=== PATIENT | male | born 1985 | race African-American/Black ===

== ENCOUNTER 2023-10-01 23:55 | Inpatient (IN) | payer SELFPAY ==
--- NOTE | ~2023-10-01 | CT_ITS ---
EXAMINATION: CT HEAD WITHOUT CONTRAST CLINICAL INFORMATION: Headache, hypertension COMPARISON: None available. TECHNIQUE: Contiguous axial imaging was performed from the skull base to vertex without intravenous administration of contrast. This CT examination was performed using dose optimization techniques as appropriate, variously including the following: *Automated exposure control *Adjustment of mA and/or kV according to patient size (this includes techniques or standardized protocols for targeted exams where dose is matched to indication/reason for exam; i.e. extremities or head) *Use of iterative reconstruction technique DLP: 649 mGy-cm FINDINGS: There are no acute intra-axial, extra-axial bleed, masses or midline shift. There is no acute infarction in evolution. There is no edema. The lateral ventricles are symmetrical in size and configuration without enlargement. There is no abnormality seen in the posterior fossa. Bone windows reveal no calvarial abnormality. There is no scalp soft tissue abnormality. The paranasal sinuses and mastoid air cells are well-aerated. CT/CT head/brain wo IV con IMPRESSION: No acute intracranial process seen.
--- NOTE | ~2023-10-01 | US_ITS ---
EXAMINATION: US RETROPERITONEAL LIMITED (RENAL ONLY) CLINICAL INFORMATION: Uncontrolled hypertension, proteinuria.. COMPARISON: None available. TECHNIQUE: Routine grayscale imaging and Doppler imaging of both kidneys was performed. FINDINGS: RIGHT KIDNEY: 9.1 x 4.5 x 3.5 cm (SAG x AP x TRV). The kidney is normal in size, contour, and echogenicity. Renal cortical thickness is normal. No calculi or focal parenchymal lesions. No hydronephrosis. LEFT KIDNEY: 9.7 x 4.5 x 3.8 cm (SAG x AP x TRV). The kidney is normal in size, contour, and echogenicity. Renal cortical thickness is normal. No calculi or focal parenchymal lesions. No hydronephrosis. There is moderate distention of stomach with echogenic fluid contents. On renal Doppler imaging: RIGHT KIDNEY: Mean peak systolic velocity proximal segment measures 72.6 cm/second, midsegment measures 62.0 cm/sec and, distal segment measures 72.5 cm/second. Renal aortic ratio measures 0.9. Resistive index averages 0.5. The renal vein is patent. LEFT KIDNEY: Peak systolic velocity proximal renal artery measures 1 43 cm/second, midsegment measures 1 29 cm/second, distal segment measures 50.2 cm/sec and. Renal aortic ratio measures 1.9. Average resistive index is 0.5. The mid abdominal aorta velocity measures 74.3 cm and is normal. US/US renal doppler IMPRESSION: Unremarkable renal ultrasound. Normal bilateral renal Doppler exam with no evidence to suggest renal artery stenosis.
--- NOTE | ~2023-10-01 | US_ITS ---
EXAMINATION: US RETROPERITONEAL LIMITED (RENAL ONLY) CLINICAL INFORMATION: Uncontrolled hypertension, proteinuria.. COMPARISON: None available. TECHNIQUE: Routine grayscale imaging and Doppler imaging of both kidneys was performed. FINDINGS: RIGHT KIDNEY: 9.1 x 4.5 x 3.5 cm (SAG x AP x TRV). The kidney is normal in size, contour, and echogenicity. Renal cortical thickness is normal. No calculi or focal parenchymal lesions. No hydronephrosis. LEFT KIDNEY: 9.7 x 4.5 x 3.8 cm (SAG x AP x TRV). The kidney is normal in size, contour, and echogenicity. Renal cortical thickness is normal. No calculi or focal parenchymal lesions. No hydronephrosis. There is moderate distention of stomach with echogenic fluid contents. On renal Doppler imaging: RIGHT KIDNEY: Mean peak systolic velocity proximal segment measures 72.6 cm/second, midsegment measures 62.0 cm/sec and, distal segment measures 72.5 cm/second. Renal aortic ratio measures 0.9. Resistive index averages 0.5. The renal vein is patent. LEFT KIDNEY: Peak systolic velocity proximal renal artery measures 1 43 cm/second, midsegment measures 1 29 cm/second, distal segment measures 50.2 cm/sec and. Renal aortic ratio measures 1.9. Average resistive index is 0.5. The mid abdominal aorta velocity measures 74.3 cm and is normal. US/US renal BI IMPRESSION: Unremarkable renal ultrasound. Normal bilateral renal Doppler exam with no evidence to suggest renal artery stenosis.
[2023-10-02] VITALS (19 sets, daily range): BP systolic 106–266; BP diastolic 68–173; PULSE 73–99; RESP 12–20; TEMP 36–36.9; O2SAT 97–100; BMI 26.2
--- NOTE | 2023-10-02 00:36 | PC.NURSE ---
RN communicated pt's BPs to charge poster. Pt remains asymptomatic at this time, aware to make RN aware of any changes
[2023-10-02 00:41] LABS: Appearance Urine Clear; Color Urine Yellow; Glucose Urine UA 100 mg/dL (Negative); Leukocyte Esterase Urine Negative (Negative); Nitrite Urine Negative (Negative); Specific Gravity - Urine 1.015 (1.005-1.025); UMIC TRIGGER UACC YES; Urine Blood Trace (Negative); Urine Ketones Negative (Negative); Urine Protein 300 (3+) mg/dL (Neg-Trace)
[2023-10-02 00:46] LABS: Bacteria Urine None Seen (None Seen); Hyaline Casts Urine 0-2 /LPF (0-2); Squamous Epithelial Cell Urine 0-2 /HPF (0-2); WBC Urine 0-5 /HPF (0-5)
[2023-10-02] MEDS: Labetalol HCL 100 MG/20 ML VIAL IVPUSH ×2 (04:30→22:58)
[2023-10-02 04:31] LABS: MANUAL DIFF FLAG NO
[2023-10-02 04:32] LABS: Basophils Absolute Auto 0.1 X10*3/uL (0.0-0.2); Eosinophils Absolute Auto 0.2 X10*3/uL (0.0-0.4); Eosinophils Percent Auto 3.1 % (0-4); Glucose, Whole Blood 78 mg/dL (60-115); Hematocrit 39.8 % (42.0-52.0); Hemoglobin 14.1 g/dl (14.0-18.0); Imm Gran Abs Auto 0.01 X10*3/uL (0.00-0.03); Imm Gran Pct Auto 0.2 % (0.0-0.4); Lymphocytes Absolute Auto 2.3 X10*3/uL (1.2-4.9); Lymphocytes Percent Auto 39.4 % (20-40); Mean Corpuscular HGB Conc 35.4 g/dl (31.0-36.0); Mean Corpuscular Volume 81.7 fL (80.0-98.0); Mean Platelet Volume 9.5 fL (9.4-12.4); Monocytes Absolute Auto 0.5 X10*3/uL (0.1-1.2); Monocytes Percent Auto 8.2 % (2-11); Neutrophils Absolute Auto 2.8 x10*3/uL (2.0-8.3); Neutrophils Percent Auto 48.1 % (45-73); Platelet Count 168 X10*3/uL (160-400); Red Blood Count 4.87 X10*6/uL (4.60-5.80); Red Cell Distribution Width 13.4 % (11.0-16.0); White Blood Count 5.8 X10*3/uL (4.8-10.8)
--- NOTE | 2023-10-02 04:42 | PC.NURSE ---
Pt presents today with penile pain and increased urination. BP noted to be elevated 250's/170's. MD made aware and orders entered into the MAR. Pt reports increased headache 03/29. Denies chest pain or sob. No hx of alcohol or drug use. 20G IV L AC. Medicated as ordered with BP improvement.
[2023-10-02 04:44] LABS: Alanine Aminotransferase 21 U/L (0-40); Albumin Level 4.2 g/dL (3.5-5.0); Alkaline Phosphatase 83 U/L (39-117); Anion Gap 12 (12-20); Aspartate Amino Transferase 23 U/L (5-37); Bilirubin Total 0.5 mg/dL (0.0-1.0); Blood Urea Nitrogen 16 mg/dL (9-16); Calcium 9.1 mg/dL (8.4-10.2); Carbon Dioxide 30 mmol/L (22-29); Chloride 104 mmol/L (96-108); Creatinine Clr Calc Pharmacy 46.2; Estimated Glomerular Filt Rate 45; Glucose Random 79 mg/dL (60-115); Potassium 3.3 mmol/L (3.3-5.1); Sodium 143 mmol/L (135-145); Total Protein 7.4 g/dL (6.5-8.0)
[2023-10-02] MEDS: Labetalol HCL 100 MG/20 ML VIAL 10 MG IVPUSH (04:59)
--- NOTE | 2023-10-02 05:04 | PC.NURSE ---
BP increased to 223/156. MD made aware and new orders entered in the OCT. Pt medicated as ordered.
--- NOTE | 2023-10-02 06:45 | PC.NURSE ---
MLP at bedside.
[2023-10-02 06:51] LABS: Magnesium 2.3 mg/dL (1.6-2.6)
[2023-10-02] MEDS: hydrALAZINE HCl 20 MG/ML VIAL 10 MG IVPUSH (06:56)
--- NOTE | 2023-10-02 07:06 | ED_ITS ---
HPI - Male Genitourinary General Chief complaint: Urogenital-Male Stated complaint: infection? Time Seen by Provider: 10/02/23 06:33 Source: patient, RN notes reviewed and old records reviewed Mode of arrival: ambulatory History of Present Illness HPI Narrative: 38-year-old male with a past medical history of hypertension noncompliant on amlodipine, presenting to the ED complaining dysuria & urinary urgency/frequency x few days. Also reports acute on chronic headache times many years. Denies abdominal pain, flank pain, fever, nausea/vomiting, penile discharge/lesions. Denies being currently sexually active or concern for STI. Denies blurry/double vision, numbness, tingling, weakness, lightheadedness/dizziness. Related Data Home Medications Medication Instructions Recorded Confirmed [id number] 250 2 tab PO Q6H PRN Headache 10/02/23 10/02/23 mg-250 mg-65 mg tablet (Excedrin Migraine) Allergies Allergy/AdvReac Type Severity Reaction Status Date / Time No Known Allergies Allergy Verified 10/02/23 00:20 Review of Systems 2 Review of Systems: Constitutional: No Fever, No Chills, No Fatigue, No Malaise ENT/Mouth: No Ear Pain, No Nasal Congestion, No sore throat, No Rhinorrhea, No Swallowing Difficulty Eyes: No Eye Pain, No Swelling, No Redness, No Vision Changes Cardiovascular: No Chest Pain, No SOB, No Edema, No Palpitations Respiratory: No Cough, No Sputum, No Dyspnea Gastrointestinal: No Nausea, No Vomiting, No Diarrhea, No Constipation, No Abdominal pain Genitourinary: No irregular bleeding, + Dysuria, + Urinary Frequency, No Hematuria, No Urinary Incontinence/retention, No Urgency, No Flank Pain, No Urinary Flow Changes, No Hesitancy, no penile lesions/discharge Musculoskeletal: No joint pain, No Myalgias, No Joint Swelling Skin: No Skin Lesions, No rash Neuro: No Weakness, No Numbness, No Paresthesias, No Loss of Consciousness, No Dizziness, + Headache Yes all other systems are reviewed and are negative Constitutional: Constitutional: Reports as per HPI Neurologic: Denies Abnormal speech present [facility] Past Medical History Attestation statement: The following information was validated with the patient. Source: old records reviewed Medical History (Updated 10/02/23 @ 12:10 by CHRISTOPH Lange) HTN (hypertension) Social History Social History Smoked in Last 30 Days: No Use of substances other than those prescribed or required for medical reasons: No Advance Directives: No Advance Directives Information Provided: Yes Physical Exam 2 Vital Signs: Vital Signs: Last Vital Signs Temp 98.0 F 10/02/23 12:37 Pulse 84 10/02/23 14:00 Resp 18 10/02/23 14:00 BP 217/142 H 10/02/23 14:00 Pulse Ox 98 10/02/23 14:00 O2 Del Method Room Air 10/02/23 14:00 BMI result Body Mass Index 26.2 Const: General: cooperative, healthy appearing and no acute distress O rientation/consciousness: patient oriented x3 Limitations: no limitations HEENT: Head: Yes normal to inspection and Yes atraumatic Ears: hearing grossly normal bilaterally General nose exam: Normal external nose present Face and sinus: Yes normal facial exam Eyes: General: appearance normal, both eyes and all related structures P upils: Equal, round and reactive pupils present EOM: EOMs intact bilaterally Neck: Neck: Yes normal visual inspection and Yes no meningeal signs Resp: Effort & Inspection: normal respiratory effort and no respiratory distress Auscultation: clear to auscultation bilaterally and no wheezes Cardio: Rate: regular rate Heart sounds: S1 normal heart sound present and S2 normal heart sound present Peripheral pulses: Peripheral pulses 2+ throughout GI: Inspection: Yes normal to inspection Palpation (GI): Soft to palpation, nontender, no guarding and not rigid : General: Yes no CVA tenderness Male General Exam: Yes normal external exam Penis: normal penis, circumcised, no swelling and no ulcerations M eatus: meatus normal Scrotum: scrotum normal Testes: Testes normal Back/Spine/Pelvis: Back: no CVA tenderness Skin: Rashes: no rashes Wounds: no wounds Neuro: General: patient oriented x3, gait normal, tone normal, moves all extremities, no meningeal signs, no focal motor deficits and CN's II-XI intact bilaterally Cranial nerves: Yes CN's II-XII intact bilaterally, Yes Equal, round and reactive pupils present and Yes Bilaterally intact EOM present C ognition (Neuro): normal cognition Speech: No Abnormal speech present Gait exam (Neuro): Normal gait present Motor exam (neuro): 5/5 motor strength present throughout and no tremor noted Extrem: General: Yes normal to inspection Course Course Course Narrative: -patient was given total of 15 mg of IV labetalol without improvement in blood pressure, will give 10 mg of IV Hydralazine and re-evaluate -712-- + SAMAN with creatinine 1.7, no priors to compare. Initial troponin 29.0 > will obtain 3 hour repeat -UA with RBCs, noninfected -801-- BP now 159/99 after 10mg IV Hydralazine -822--repeat troponin 29.7, VA unlikely CT head/brain wo IV con IMPRESSION: No acute intracranial process seen. > plan to admit for further management Medications Administered Generic Name Dose Route Start Last Admin Trade Name Freq PRN Reason Stop Dose Admin Carvedilol 12.5 mg 10/02/23 21:00 10/02/23 15:37 Carvedilol 12.5 Mg Tablet PO 12.5 mg BID SYDNIE Administration Protocol Sodium Chloride 3 ml 10/02/23 16:00 10/02/23 15:40 0.9 % Sodium Chloride Flush 3 Ml Syringe IVFLUSH 3 ml QSHIFT SYDNIE Administration Discontinued Medications Generic Name Dose Route Start Last Admin Trade Name Freq PRN Reason Stop Dose Admin Acetaminophen/Butalbital/Caffeine 1 tab 10/02/23 10:30 10/02/23 10:42 Butalb/Acetamin/Caff 50/325/40 Tablet PO 10/02/23 10:31 1 tab ONCE ONE Administration Amlodipine Besylate 10 mg 10/02/23 10:06 10/02/23 10:41 Amlodipine Besylate 10 Mg Tablet PO 10/02/23 10:07 10 mg ONCE ONE Administration Protocol Hydralazine HCl 10 mg 10/02/23 06:48 10/02/23 06:56 Hydralazine Hcl 20 Mg/Ml Vial IVPUSH 10/02/23 06:49 10 mg ONCE ONE Administration Protocol Hydromorphone HCl 0.5 mg 10/02/23 14:37 10/02/23 15:39 Hydromorphone Hcl 0.5 Mg/0.5 Ml Syringe IVPUSH 10/02/23 14:38 0.5 mg ONCE ONE Administration Protocol Labetalol HCl 5 mg 10/02/23 04:19 10/02/23 04:30 Labetalol Hcl 100 Mg/20 Ml Vial IVPUSH 10/02/23 04:20 5 mg ONCE ONE Administration Labetalol HCl 10 mg 10/02/23 04:57 10/02/23 04:59 Labetalol Hcl 100 Mg/20 Ml Vial IVPUSH 10/02/23 04:58 10 mg ONCE ONE Administration Morphine Sulfate 2 mg 10/02/23 11:56 10/02/23 12:41 Morphine Sulfate 2 Mg/Ml Cartridge IVPUSH 10/02/23 11:57 2 mg ONCE ONE Administration Protocol Phenazopyridine HCl 100 mg 10/02/23 08:26 10/02/23 10:41 Phenazopyridine Hcl 100 Mg Tablet PO 10/02/23 08:27 100 mg ONCE ONE Administration Medical Decision Making Medical Decision Making [facility] Narrative: 38-year-old male with a past medical history of hypertension noncompliant on amlodipine, presenting to the ED complaining dysuria & urinary urgency/frequency x few days. On exam hypertensive, NAD, nontoxic appearing, abdomen soft/nontender, exam WNL, ambulating with steady gait. No focal neuro deficits. Concern for UTI vs STI. Concern for hypertensive urgency vs emergency, and medication noncompliance. Rule out ICH. Low suspicion for dissection. low suspicion for renal stone/pyelo Plan: EKG, labs, UA, CT/NG testing, blood pressure control, anticipate admission Please refer to course for remaining clinical decision making, interpretation of labs/imaging results, and discussions with consultants and/or family members. Differential Diagnosis Differential Diagnoses: The differential diagnosis associated with the presentation includes As above Admission/Observation Consideration of admission/observation: Escalation of care including admission/observation considered Consult Healthcare Provider Management of the patient was discussed with: Hospitalist Lab Data [facility] Lab Attestation statement: I reviewed the patient's lab results. 10/02/23 04:28 10/02/23 13:50 Labs: Lab Results 10/02/23 10/02/23 10/02/23 Range/Units 00:34 04:28 07:27 WBC 5.8 (4.8-10.8) X10*3/uL RBC 4.87 (4.60-5.80) X10*6/uL Hgb 14.1 (14.0-18.0) g/dl Hct 39.8 L (42.0-52.0) % MCV 81.7 (80.0-98.0) fL MCH 29.0 (27.0-33.0) pg MCHC 35.4 (31.0-36.0) g/dl RDW 13.4 (11.0-16.0) % Plt Count 168 (160-400) X10*3/uL MPV 9.5 (9.4-12.4) fL Immature Gran % (Auto) 0.2 (0.0-0.4) % Neut % (Auto) 48.1 (45-73) % Lymph % (Auto) 39.4 (20-40) % Parker % (Auto) 8.2 (2-11) % Eos % (Auto) 3.1 (0-4) % Baso % (Auto) 1.0 (0-2) % Lymph # (Auto) 2.3 (1.2-4.9) X10*3/uL Parker # (Auto) 0.5 (0.1-1.2) X10*3/uL Eos # (Auto) 0.2 (0.0-0.4) X10*3/uL Baso # (Auto) 0.1 (0.0-0.2) X10*3/uL Abs Immat Gran (auto) 0.01 (0.00-0.03) X10*3/uL Absolute Neuts (auto) 2.8 (2.0-8.3) x10*3/uL Absolute Nucleated RBC 0.000 (0.0-0.012) X10*3/uL Nucleated RBC % (auto) 0.0 (0.0-0.2) /100WBC Sodium 143 (135-145) mmol/L Potassium 3.3 (3.3-5.1) mmol/L Chloride 104 (96-108) mmol/L Carbon Dioxide 30 H (22-29) mmol/L Anion Gap 12 (12-20) BUN 16 (9-16) mg/dL Creatinine 1.70 H (0.5-1.4) mg/dL Estim Creat Clear Calc 46.2 Estimated GFR 45 POC Glucose 78 (60-115) mg/dL Random Glucose 79 (60-115) mg/dL Calcium 9.1 (8.4-10.2) mg/dL Magnesium 2.3 (1.6-2.6) mg/dL Total Bilirubin 0.5 (0.0-1.0) mg/dL AST 23 (5-37) U/L ALT 21 (0-40) U/L Alkaline Phosphatase 83 (39-117) U/L Troponin I High Sens 29.0 (<3.5-35.0) ng/L Total Protein 7.4 (6.5-8.0) g/dL Albumin 4.2 (3.5-5.0) g/dL Urine Color Yellow Urine Appearance Clear Urine pH 6.0 (5.0-9.0) Ur Specific [place] 1.015 (1.005-1.025) Urine Protein 300 (3+) H (Neg-Trace) mg/dL Urine Glucose (UA) 100 H (Negative) mg/dL Urine Ketones Negative (Negative) mg/dL Urine Blood Trace H (Negative) Urine Nitrite Negative (Negative) Ur Leukocyte Esterase Negative (Negative) Urine RBC 3-5 H (0-2) /HPF Urine WBC 0-5 (0-5) /HPF Ur Squamous Epith Cells 0-2 (0-2) /HPF Urine Bacteria None Seen (None Seen) Hyaline Casts 0-2 (0-2) /LPF Urine Opiates Screen Not Detected (Not Detect) Urine Fentanyl Screen Not Detected (Not Detect) Ur Barbiturates Screen Not Detected (Not Detect) Ur Phencyclidine Scrn Not Detected (Not Detect) Ur Amphetamines Screen Not Detected (Not Detect) U Benzodiazepines Scrn Not Detected (Not Detect) Urine Cocaine Screen Not Detected (Not Detect) U Marijuana (THC) Screen Not Detected (Not Detect) Chlam trachomat DNA PCR NOT DETECTED (Not Detect.) N.gonorrhoeae DNA (PCR) NOT DETECTED (Not Detect.) 10/02/23 Range/Units 07:35 WBC (4.8-10.8) X10*3/uL RBC (4.60-5.80) X10*6/uL Hgb (14.0-18.0) g/dl Hct (42.0-52.0) % MCV (80.0-98.0) fL MCH (27.0-33.0) pg MCHC (31.0-36.0) g/dl RDW (11.0-16.0) % Plt Count (160-400) X10*3/uL MPV (9.4-12.4) fL Immature Gran % (Auto) (0.0-0.4) % Neut % (Auto) (45-73) % Lymph % (Auto) (20-40) % Parker % (Auto) (2-11) % Eos % (Auto) (0-4) % Baso % (Auto) (0-2) % Lymph # (Auto) (1.2-4.9) X10*3/uL Parker # (Auto) (0.1-1.2) X10*3/uL Eos # (Auto) (0.0-0.4) X10*3/uL Baso # (Auto) (0.0-0.2) X10*3/uL Abs Immat Gran (auto) (0.00-0.03) X10*3/uL Absolute Neuts (auto) (2.0-8.3) x10*3/uL Absolute Nucleated RBC (0.0-0.012) X10*3/uL Nucleated RBC % (auto) (0.0-0.2) /100WBC Sodium (135-145) mmol/L Potassium (3.3-5.1) mmol/L Chloride (96-108) mmol/L Carbon Dioxide (22-29) mmol/L Anion Gap (12-20) BUN (9-16) mg/dL Creatinine (0.5-1.4) mg/dL Estim Creat Clear Calc Estimated GFR POC Glucose (60-115) mg/dL Random Glucose (60-115) mg/dL Calcium (8.4-10.2) mg/dL Magnesium (1.6-2.6) mg/dL Total Bilirubin (0.0-1.0) mg/dL AST (5-37) U/L ALT (0-40) U/L Alkaline Phosphatase (39-117) U/L Troponin I High Sens 29.7 (<3.5-35.0) ng/L Total Protein (6.5-8.0) g/dL Albumin (3.5-5.0) g/dL Urine Color Urine Appearance Urine pH (5.0-9.0) Ur Specific [place] (1.005-1.025) Urine Protein (Neg-Trace) mg/dL Urine Glucose (UA) (Negative) mg/dL Urine Ketones (Negative) mg/dL Urine Blood (Negative) Urine Nitrite (Negative) Ur Leukocyte Esterase (Negative) Urine RBC (0-2) /HPF Urine WBC (0-5) /HPF Ur Squamous Epith Cells (0-2) /HPF Urine Bacteria (None Seen) Hyaline Casts (0-2) /LPF Urine Opiates Screen (Not Detect) Urine Fentanyl Screen (Not Detect) Ur Barbiturates Screen (Not Detect) Ur Phencyclidine Scrn (Not Detect) Ur Amphetamines Screen (Not Detect) U Benzodiazepines Scrn (Not Detect) Urine Cocaine Screen (Not Detect) U Marijuana (THC) Screen (Not Detect) Chlam trachomat DNA PCR (Not Detect.) N.gonorrhoeae DNA (PCR) (Not Detect.) Independent Interpretation I performed an independent interpretation of an: EKG Radiology Impression Discussion of test interpretation with radiology: I have reviewed the radiologist's reading. External Record Review External record reviewed: Inpatient record, Office record, Outpatient record, Prior outpatient labs, Prior outpatient radiology, Primary care record and Outside ED record Tests considered The following testing was considered but not selected: As above Prescription Management I considered prescription management with: Pain Medication and Antibiotic Chronic Conditions Patient?s care impacted by: Hypertension Critical Care Time Critical Care Time Critical Care Time: Yes Total Critical Care Time: 45 Attestation: I have personally provided critical care time exclusive of time spent on separately billable procedures. Time includes review of lab data, radiology results, discussion with consultants, and monitoring for potential decompensation. Intervention performed as documented. Discharge Plan Discharge Clinical Impression: Severe uncontrolled hypertension, Dysuria Patient Disposition: Admitted As Inpatient
--- NOTE | 2023-10-02 07:13 | ECG_ITS ---
Test Reason : HTN Blood Pressure : / mmHG Vent. Rate : 098 BPM Atrial Rate : 098 BPM P-R Int : 152 ms QRS Dur : 086 ms QT Int : 356 ms P-R-T Axes : 033 -04 185 degrees QTc Int : 454 ms Normal sinus rhythm Left ventricular hypertrophy with repolarization abnormality ( R in aVL , Dino product ) Abnormal ECG No previous ECGs available Referred By: Lien [place] Electronically Signed By:Nehemiah Costa
[2023-10-02 08:06] LABS: Troponin-I High Sensitivity 29.7 ng/L (<3.5-35.0)
--- NOTE | 2023-10-02 08:34 | PC.NURSE ---
PT IS A/O X 4 NO SOB/JIMBO NOTED SPEAKS IN FULL SENTENCES. AMB (I) TO BATHROOM AND BTB. PT DENIES ANY PAIN/DISC. PT IS ASYMPTOMATIC WITH HTN. PT IS AWARE OF PLAN OF CARE FOR ADMISSION. WILL CONTINUE TO MONITOR.
[2023-10-02 08:46] LABS: Amphetamine Screen Urine Not Detected (Not Detect); Barbiturates, Urine Not Detected (Not Detect); Benzodiazepines Screen Urine Not Detected (Not Detect); Cannabinoid Screen Urine Not Detected (Not Detect); Cocaine Screen Urine Not Detected (Not Detect); Fentanyl, urine Not Detected (Not Detect); Opiate Screen Urine Not Detected (Not Detect); Phencyclidine Screen Urine Not Detected (Not Detect)
--- NOTE | 2023-10-02 10:03 | PHA.MEDREC ---
Pharmacy Consult ? Medication Reconciliation Pharmacy has completed the medication reconciliation. Confirmed medication with patient. Reports that he only takes excederin migraine
[2023-10-02] MEDS: amLODIPine Besylate 10 MG TABLET PO (10:41)
[2023-10-02] MEDS: Phenazopyridine HCL 100 MG TABLET PO (10:41)
[2023-10-02] MEDS: Butalb/Acetamin/Caff 50/325/40 TABLET 1 TAB PO (10:42)
--- NOTE | 2023-10-02 10:45 | PC.NURSE ---
PT SEEN Y [facility] ([facility]) PT AWARE OF PLAN OF CARE FOR ADMISSION.
--- NOTE | 2023-10-02 12:01 | P.HPHOSP_ITS ---
History of Present Illness Date of Service: 10/02/23 Attending physician on admission: Adriano Small Chief Complaint: headache, penile pain 38 year old male with history of htn noncompliant with amlodipine at home presents to the ED for evaluation of penile pain ongoing for several week. Describes a pain/pressure inside the penis not related to urination. No dysuria, increased frequency, hematuria, penile discharge, rashes. No history STI. Denies unsafe sexual intercourse. He also reports severe diffuse headache that is constant. Reports he has been having similar headaches frequently for weeks. No vision changes. No chest pain, sob, lightheadedness, focal weakness/paresthesias. On arrival, bp 266/170, vitals otherwise stable. Given 10mg IV labetalol, 5mg labetalol, 10 mg IV hydralazine with improvement to 176/113 on admission and has been given amlodipine 10mg. Hematology studies unremarkable. Creatinine 1.70, baseline unknown. BUN 16. Electrolyte levels normal. Hepatic function normal. Initial troponin 29.0, repeat 29.7. Urinalysis significant for trace blood, 3+ protein. Urine tox screen negative. Gonorrhea chlamydia PCR pending. Head CT negative for any acute intracranial abnormality. EKG shows NSR, rate 98 with evidence of LVH and repolarization abnormality. Has also been given Fioricet with limited improvement in headache. Review of Systems 2 Review of Systems: General: No fevers, malaise, unintentional weight loss HEENT: No blurred vision, diplopia. No sore throat, nasal congestion, rhinorrhea, sinus pain, ear pain Cardiovascular: No chest pain, palpitations, or leg edema Respiratory: No shortness of breath, wheezing, cough GI: No abdominal pain, nausea, vomiting, diarrhea, constipation, melena, hematochezia : +penile pain. No dysuria, hematuria, increased urinary frequency, decreased urinary output, penile discharge MSK: No myalgia, back pain Neuro: +headache. No weakness, paresthesias Skin: No rashes or lesions [facility] Medical History (Updated 10/02/23 @ 12:10 by CHRISTOPH Lange) HTN (hypertension) Social History Smoked in Last 30 Days: No Use of substances other than those prescribed or required for medical reasons: No Advance Directives: No Advance Directives Information Provided: Yes Meds Allergies Allergy/AdvReac Type Severity Reaction Status Date / Time No Known Allergies Allergy Verified 10/02/23 00:20 Active Medications: Current Medications Acetaminophen (Acetaminophen 325 Mg Tablet) 650 mg PO Q6H PRN PRN Reason: Pain, Mild (Pain Scale 1-3) Enoxaparin Sodium (Enoxaparin Sodium 40 Mg/0.4 Ml Syringe) 40 mg SUBCUT Q24H SYDNIE Ondansetron HCl (Ondansetron Hcl 4 Mg/2 Ml Vial) 4 mg IVPUSH Q8H PRN PRN Reason: Nausea and Vomiting Senna (Sennosides 8.6 Mg Tablet) 17.2 mg PO BEDTIME PRN PRN Reason: Constipation Sodium Chloride (0.9 % Sodium Chloride Flush 3 Ml Syringe) 3 ml IVFLUSH QSHIFT SYDNIE Home Medications Medication Instructions Recorded Confirmed Last Taken Type psaqcer-ouixzlpvwlyrm-hwwpmnth 250 2 tab PO Q6H PRN Headache 10/02/23 10/02/23 10/02/23 History mg-250 mg-65 mg tablet (Excedrin Migraine) Physical Exam 2 Vital Signs and Narrative: Vital Signs: Last Vital Signs Temp 98.2 F 10/02/23 10:30 Pulse 91 10/02/23 10:30 Resp 19 10/02/23 10:30 BP 176/113 H 10/02/23 10:30 Pulse Ox 98 10/02/23 10:30 O2 Del Method Room Air 10/02/23 10:30 BMI result Body Mass Index 26.2 Constitutional - Awake and Alert, No apparent distress Eyes - PERRLA, EOMI Cardiovascular - S1S2, RRR, No edema Respiratory - Normal lung expansion, Normal respiratory effort, No respiratory distress, CTA bilaterally Gastrointestinal - NT / ND; +BS; No rebound or guarding Genitourinary - atraumatic circumcised genitalia, no rashes/lesions. Non tender to palpation. No urethral drainage Extremities - no calf tenderness bilaterally, no swelling Skin - Warm/Dry Neurological - Alert & oriented x3, CN II-XII in tact, 5/5 strength BUE and BLE Psychological - Appropriate affect Results Labs 10/02/23 04:28 10/02/23 04:28 Labs: Laboratory Results - last 24 hr 10/02/23 10/02/23 10/02/23 00:34 04:28 07:35 MCV 81.7 MCH 29.0 MCHC 35.4 RDW 13.4 Plt Count 168 MPV 9.5 Immature Gran % (Auto) 0.2 Neut % (Auto) 48.1 Lymph % (Auto) 39.4 Leon % (Auto) 8.2 Eos % (Auto) 3.1 Baso % (Auto) 1.0 Lymph # (Auto) 2.3 Leon # (Auto) 0.5 Eos # (Auto) 0.2 Baso # (Auto) 0.1 Abs Immat Gran (auto) 0.01 Absolute Neuts (auto) 2.8 Absolute Nucleated RBC 0.000 Nucleated RBC % (auto) 0.0 Anion Gap 12 Estim Creat Clear Calc 46.2 Estimated GFR 45 POC Glucose 78 Random Glucose 79 Calcium 9.1 Magnesium 2.3 Total Bilirubin 0.5 AST 23 ALT 21 Alkaline Phosphatase 83 Troponin I High Sens 29.0 29.7 Total Protein 7.4 Albumin 4.2 Urine Color Yellow Urine Appearance Clear Urine pH 6.0 Ur Specific [place] 1.015 Urine Protein 300 (3+) H Urine Glucose (UA) 100 H Urine Ketones Negative Urine Blood Trace H Urine Nitrite Negative Ur Leukocyte Esterase Negative Urine RBC 3-5 H Urine WBC 0-5 Ur Squamous Epith Cells 0-2 Urine Bacteria None Seen Hyaline Casts 0-2 Urine Opiates Screen Not Detected Urine Fentanyl Screen Not Detected Ur Barbiturates Screen Not Detected Ur Phencyclidine Scrn Not Detected Ur Amphetamines Screen Not Detected U Benzodiazepines Scrn Not Detected Urine Cocaine Screen Not Detected U Marijuana (THC) Screen Not Detected Imaging Radiologist's Impressions: Impressions Head CT 10/02/23 07:00 IMPRESSION: No acute intracranial process seen. Assessment and Plan (1) Hypertensive urgency: Status: Acute (2) Penile pain: Status: Acute Plan 38 year old male with history of htn noncompliant with amlodipine at home admitted for management of hypertensive urgency. #Hypertensive urgency -head ct negative for acute intracranial abnormality -trops flat -BP on arrival 266/170. Given IV labetalol 10mg, labetalol 5mg, IV hydralazine 10mg. BP on admission 176/133 -Given amlodipine 10mg just prior to admission. Hold on additional antihypertensives, monitor bp closely -Monitor on tele #Elevated creatinine -creat 1.70, baseline unknown -suspect CKD due to uncontrolled hypertension -avoid nephrotoxins -low sodium diet -I&O -Follow renal function, lytes #Proteinuria -related to CKD and uncontrolled HTN -would likely benefit from chip/arb -outpt nephro consult #Headache -likely due to uncontrolled htn -fioricet prn, give morphine x 1 -head ct negative #Penile pain -?urethritis -UA negative for UTI -CT NG PCR pending -consider urology consult DVt prophylaxis- SCPs Full code Pt requires inpt stay at least 2 midnights due to hypertensive urgency requiring IV antihypertensives with gradual lowering of bp of 24 hours and optimization of oral antihypertensives Quality Stroke Does the patient have a stroke diagnosis?: No VTE Prior VTE?: No VTE Risk Level:: Medical - moderate - high VTE Device Contraindication: Treatment Not Indicated VTE Drug Contraindication: N/A - Med Ordered
[2023-10-02] MEDS: Morphine Sulfate 2 MG/ML CARTRIDGE IVPUSH (12:41)
[2023-10-02 13:11] LABS: CT PCR NOT DETECTED (Not Detect.); NG PCR NOT DETECTED (Not Detect.)
[2023-10-02 14:14] LABS: Anion Gap 12 (12-20); Blood Urea Nitrogen 15 mg/dL (9-16); Calcium 9.8 mg/dL (8.4-10.2); Carbon Dioxide 30 mmol/L (22-29); Chloride 105 mmol/L (96-108); Creatinine Clr Calc Pharmacy 49.4; Estimated Glomerular Filt Rate 48; Glucose Random 101 mg/dL (60-115); Potassium 3.6 mmol/L (3.3-5.1); Sodium 143 mmol/L (135-145)
[2023-10-02] MEDS: carvediloL 12.5 MG TABLET PO ×2 (15:37→22:01)
[2023-10-02] MEDS: HYDROmorphone HCl 0.5 MG/0.5 ML SYRINGE IVPUSH (15:39)
[2023-10-02] MEDS: 0.9 % Sodium Chloride Flush 3 ML SYRINGE IVFLUSH ×2 (15:40→22:01)
[2023-10-02] MEDS: NIFEdipine ER 30 MG TAB.ER.24 PO (18:51)
[2023-10-02] MEDS: Morphine Sulfate Immed Release 15 MG TABLET PO (22:58)
[2023-10-03 02:15] VITALS: RESP 18
--- NOTE | 2023-10-03 03:45 | ECG_ITS ---
Test Reason : CP Blood Pressure : / mmHG Vent. Rate : 081 BPM Atrial Rate : 081 BPM P-R Int : 142 ms QRS Dur : 086 ms QT Int : 368 ms P-R-T Axes : 033 008 206 degrees QTc Int : 427 ms Normal sinus rhythm Left ventricular hypertrophy with repolarization abnormality ( R in aVL , Romhilt-Lockhart ) Abnormal ECG When compared with ECG of 02-OCT-2023 07:30, T wave inversion more evident in Inferior leads Referred By: Veronica Elizondo Electronically Signed By:Nehemiah Costa
[2023-10-03 03:49] VITALS: BP 131/87; PULSE 87; RESP 18; TEMP 37.6; O2SAT 98
[2023-10-03 07:28] VITALS: BP 144/104; PULSE 77; RESP 20; TEMP 36.6; O2SAT 97
[2023-10-03 07:34] LABS: MANUAL DIFF FLAG NO
[2023-10-03 07:44] LABS: Basophils Percent Auto 0.6 % (0-2); Eosinophils Absolute Auto 0.2 X10*3/uL (0.0-0.4); Eosinophils Percent Auto 2.8 % (0-4); Hematocrit 40.6 % (42.0-52.0); Hemoglobin 14.2 g/dl (14.0-18.0); Imm Gran Abs Auto 0.02 X10*3/uL (0.00-0.03); Imm Gran Pct Auto 0.3 % (0.0-0.4); Lymphocytes Absolute Auto 1.9 X10*3/uL (1.2-4.9); Lymphocytes Percent Auto 27.8 % (20-40); Mean Platelet Volume 11.3 fL (9.4-12.4); Monocytes Absolute Auto 0.5 X10*3/uL (0.1-1.2); Monocytes Percent Auto 7.3 % (2-11); Neutrophils Absolute Auto 4.1 x10*3/uL (2.0-8.3); Neutrophils Percent Auto 61.2 % (45-73); Platelet Count 177 X10*3/uL (160-400); Red Blood Count 4.89 X10*6/uL (4.60-5.80); Red Cell Distribution Width 13.9 % (11.0-16.0); White Blood Count 6.7 X10*3/uL (4.8-10.8)
[2023-10-03 08:02] LABS: Anion Gap 10 (12-20); Blood Urea Nitrogen 16 mg/dL (9-16); Calcium 9.4 mg/dL (8.4-10.2); Carbon Dioxide 30 mmol/L (22-29); Chloride 105 mmol/L (96-108); Creatinine Clr Calc Pharmacy 48.2; Estimated Glomerular Filt Rate 47; Glucose Random 89 mg/dL (60-115); Potassium 3.3 mmol/L (3.3-5.1); Sodium 142 mmol/L (135-145)
[2023-10-03 08:05] LABS: Parathyroid Hormone Intact 184.4 pg/mL (8.7-77.1)
--- NOTE | 2023-10-03 08:16 | MHC.CM.PN ---
CM met with Patient at bedside. Patient lives in a house with his Cousin/Jerry and he required no services nor DME [employer]. Home/self care is the goal and CM has initiated and will follow for dc planning.Patient has no PCP and no insurance; a referral has been made to [facility].
[2023-10-03 08:20] LABS: Vitamin D 25-OH Total 23.1 ng/mL (>30)
[2023-10-03] MEDS: carvediloL 12.5 MG TABLET PO (09:44)
[2023-10-03] MEDS: NIFEdipine ER 30 MG TAB.ER.24 PO ×2 (09:44→11:36)
[2023-10-03] MEDS: 0.9 % Sodium Chloride Flush 3 ML SYRINGE IVFLUSH (09:45)
--- NOTE | 2023-10-03 09:48 | P.CONNP_ITS ---
History of Present Illness Reason for Consult Consult date: 10/03/23 Chief Complaint Chief complaint: hypertency urgency History of Present Illness Narrative: 38 year old ( ? illegal alien )male with history of hypertension who has been noncompliant with amlodipine at home presented to the ER for evaluation of penile pain ongoing for several week. No dysuria, increased frequency, hematuria, penile discharge, rashes. No history STI. Denies unsafe sexual intercourse. He also reports severe diffuse headache that is constant & frequently for weeks. No vision changes. No chest pain, sob, lightheadedness, focal weakness/paresthesias. On arrival, bp 266/170, vitals otherwise stable. Given 10mg IV labetalol, 5mg labetalol, 10 mg IV hydralazine with improvement to 176/113 on admission and has been given amlodipine 10mg. Hematology studies unremarkable. Creatinine 1.70, baseline unknown. BUN 16. Electrolyte levels normal. Hepatic function normal. Initial troponin 29.0, repeat 29.7. Urinalysis significant for trace blood, 3+ protein. Urine tox screen negative. Head CT negative for any acute intracranial abnormality. EKG shows NSR, rate 98 with evidence of LVH and repolarization abnormality. Nephrology has been consulted to assist in his clinical care during his current hospital stay [facility] Past Medical History Medical History (Updated 10/03/23 @ 09:51 by Adonay Leonard MD) HTN (hypertension) Social History Social History Household Members: Other Housing: Apartment Do you presently have visiting nurse or other home services: No Patient Tobacco Use Status: Never used Tobacco e-Cigarette/Vaping Use: Never Used Second Hand Smoke Exposure: No service: No Meds Allergies Allergy/AdvReac Type Severity Reaction Status Date / Time No Known Allergies Allergy Verified 10/02/23 00:20 Active Medications: Current Medications Acetaminophen (Acetaminophen 325 Mg Tablet) 650 mg PO Q6H PRN PRN Reason: Pain, Mild (Pain Scale 1-3) Carvedilol (Carvedilol 12.5 Mg Tablet) 12.5 mg PO BID [facility]; Protocol Last Admin: 10/03/23 09:44 Dose: 12.5 mg Hydromorphone HCl (Hydromorphone Hcl 0.5 Mg/0.5 Ml Syringe) 0.25 mg IVPUSH Q4H PRN; Protocol PRN Reason: Pain, Severe (Pain Scale 7-10) Nifedipine (Nifedipine Er 30 Mg Tab.Er.24) 30 mg PO DAILY [facility]; Protocol Last Admin: 10/03/23 09:44 Dose: 30 mg Ondansetron HCl (Ondansetron Hcl 4 Mg/2 Ml Vial) 4 mg IVPUSH Q8H PRN PRN Reason: Nausea and Vomiting Senna (Sennosides 8.6 Mg Tablet) 17.2 mg PO BEDTIME PRN PRN Reason: Constipation Sodium Chloride (0.9 % Sodium Chloride Flush 3 Ml Syringe) 3 ml IVFLUSH QSHIFT [facility] Last Admin: 10/03/23 09:45 Dose: 3 ml Home Medications Medication Instructions Recorded Confirmed Last Taken Type tqwivqw-ftjcqjtgwmxgz-nrsvgoop 250 2 tab PO Q6H PRN Headache 10/02/23 10/02/23 10/02/23 History mg-250 mg-65 mg tablet (Excedrin Migraine) Physical Exam Vital Signs: Last Vital Signs Temp 97.9 F 10/03/23 07:28 Pulse 77 10/03/23 07:28 Resp 20 10/03/23 07:28 BP 144/104 H 10/03/23 07:28 Pulse Ox 97 10/03/23 07:28 O2 Del Method Room Air 10/03/23 07:28 BMI result Body Mass Index 26.2 Const General: comfortable and no acute distress Orientation/consciousness: patient oriented x3 HEENT Head: Yes normocephalic Mouth: Normal oral and palatal mucosa present Eyes EOM: EOMs intact bilaterally Neck Neck: Yes supple Resp Auscultation: clear to auscultation bilaterally Cardio Jugular venous distension: no JVD Rate: regular rate GI Palpation (GI): Soft to palpation Auscultation: normal bowel sounds General: Yes no CVA tenderness Back/Spine/Pelvis Back: no CVA tenderness Skin General skin exam: no rashes or lesions noted Neuro General: patient oriented x3 and moves all extremities Extrem General: Yes no pedal edema Results Lab Results 10/03/23 07:21 10/03/23 07:21 Lab results: Chemistry 10/02/23 10/02/23 10/03/23 04:28 13:50 07:21 Sodium 143 143 142 Potassium 3.3 3.6 3.3 Carbon Dioxide 30 H 30 H 30 H BUN 16 15 16 Creatinine 1.70 H 1.59 H 1.63 H Calcium 9.1 9.8 D 9.4 Hematology 10/02/23 10/03/23 04:28 07:21 WBC 5.8 6.7 Hgb 14.1 14.2 Plt Count 168 177 Urinalysis 10/02/23 00:34 Urine Color Yellow Urine Appearance Clear Urine pH 6.0 Ur Specific [place] 1.015 Urine Protein 300 (3+) H Urine Glucose (UA) 100 H Urine Ketones Negative Urine Blood Trace H Urine Nitrite Negative Ur Leukocyte Esterase Negative Urine RBC 3-5 H Urine WBC 0-5 Ur Squamous Epith Cells 0-2 Hyaline Casts 0-2 Assessment and Plan (1) Severe uncontrolled hypertension: Status: Acute (2) CKD (chronic kidney disease) stage 3, GFR 30-59 ml/min: Qualifiers: Chronic kidney disease stage 3 subtype: stage 3a (GFR 45-59) Qualified Code(s): N18.31 - Chronic kidney disease, stage 3a Status: Acute (3) Proteinuria: Qualifiers: Proteinuria type: other Qualified Code(s): R80.8 - Other proteinuria Status: Acute Plan Shane has longstanding hypertension. He has no proper access to health care given his illegal alien. He has been taking nonsteroidal anti-inflammatories for headache. He has proteinuria and CKD. 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 Workup to rule out secondary etiology for hypertension and abnormal renal function is in progress. Doppler of his renal arteries did not show any significant stenosis. Quantification of urine protein pending. Kidney size look acceptable. He likely would need renal biopsy as an outpatient. I have started him on carvedilol yesterday. We will continue with current dosage. Will increase his nifedipine to 60 mg daily. He should be on a low-sodium diet. He is left ventricular hypertrophy. All these have been discussed in detail with him. He needs proper outpatient follow-up with us. All questions answered. Procedures Date of Service Date of Service: 10/03/23
--- NOTE | 2023-10-03 10:30 | PM.DS ---
DS: Providers Provider Date of Service: 10/03/23 Date of admission: 10/02/23 11:57 Primary care physician: Unknown Physician Consults: 10/02/23 12:58 Consult to Nephrology Routine Consulting Provider: [facility] Reason for consultation: uncontrolled htn, elevated creat. Medication assistance DS: Diagnosis Discharge Diagnosis (1) Severe uncontrolled hypertension: Status: Acute (2) CKD (chronic kidney disease) stage 3, GFR 30-59 ml/min: Status: Acute (3) Proteinuria: Status: Acute DS: Summary Hospital Course Hospital Course: admission HPI Chief Complaint: headache, penile pain 38 year old male with history of htn noncompliant with amlodipine at home presents to the ED for evaluation of penile pain ongoing for several week. Describes a pain/pressure inside the penis not related to urination. No dysuria, increased frequency, hematuria, penile discharge, rashes. No history STI. Denies unsafe sexual intercourse. He also reports severe diffuse headache that is constant. Reports he has been having similar headaches frequently for weeks. No vision changes. No chest pain, sob, lightheadedness, focal weakness/paresthesias. On arrival, bp 266/170, vitals otherwise stable. Given 10mg IV labetalol, 5mg labetalol, 10 mg IV hydralazine with improvement to 176/113 on admission and has been given amlodipine 10mg. Hematology studies unremarkable. Creatinine 1.70, baseline unknown. BUN 16. Electrolyte levels normal. Hepatic function normal. Initial troponin 29.0, repeat 29.7. Urinalysis significant for trace blood, 3+ protein. Urine tox screen negative. Gonorrhea chlamydia PCR pending. Head CT negative for any acute intracranial abnormality. EKG shows NSR, rate 98 with evidence of LVH and repolarization abnormality. Has also been given Fioricet with limited improvement in headache. Pt experienced brief relief on headache with IV morphine but has returned. Bp elevated again to 217/142. Discussed with nephrology. Given unknown renal baseline, hold on chip/arb though may benefit in future. Add carvedilol 12.5mg BID. Avoid rapid lowering of BP. NO focal neuro deficits, no indication to rescan head at this time, but can consider if headache worsens with any associated neuro deficits. Added renal doppler. Check ANCA per nephro given trace hematuria. If bp remains elevated, dc amlodipine, add nifedipine 30mg per nephro Hospital course: Patient presented scrotal edema, headache and extremely hgih blood pressures as stated above. Head CT showed no acute finding. He was treated with intravenous medication including IV labetalol, IV hydralazine and oral amlodipine. UA show proteinuria and renal function suggest CKD 3. Blood pressure has improved and he has started oral medication with Nefedipine and Coreg with good effec. He reportedly was on Norvasc but was not taking it, he will need to follow up with a spout worker and a primary care doctor Time Attestation Discharge coordination time: Greater than 30 minutes Quality: Safe Use of Opioids Does Pt have an Active Cancer Diagnosis on the Problem List?: No Quality: Stroke Does the patient have a stroke diagnosis?: No Physical Exam Vital Signs: Vital Signs: Last Vital Signs Temp 97.9 F 10/03/23 07:28 Pulse 77 10/03/23 07:28 Resp 20 10/03/23 07:28 BP 144/104 H 10/03/23 07:28 Pulse Ox 97 10/03/23 07:28 O2 Del Method Room Air 10/03/23 07:28 BMI result Body Mass Index 26.2 General: AO X 3, no acute distress Resp: CTA bilateral CVS: S1,S2,RRR GI: +BS, NT, no distention Skin: No rash Neuro: motor grossly intact Psych: appropriate affect DS: Data Data Completed and Pending Labs on day of discharge: Laboratory Results - last 24 hr 10/02/23 10/02/23 10/03/23 07:27 13:50 07:21 WBC 6.7 RBC 4.89 Hgb 14.2 Hct 40.6 L MCV 83.0 MCH 29.0 MCHC 35.0 RDW 13.9 Plt Count 177 MPV 11.3 Immature Gran % (Auto) 0.3 Neut % (Auto) 61.2 Lymph % (Auto) 27.8 [place] % (Auto) 7.3 Eos % (Auto) 2.8 Baso % (Auto) 0.6 Lymph # (Auto) 1.9 [place] # (Auto) 0.5 Eos # (Auto) 0.2 Baso # (Auto) 0.0 Abs Immat Gran (auto) 0.02 Absolute Neuts (auto) 4.1 Absolute Nucleated RBC 0.000 Nucleated RBC % (auto) 0.0 Hold Purple Top SEE NOTE Sodium 143 142 Potassium 3.6 3.3 Chloride 105 105 Carbon Dioxide 30 H 30 H Anion Gap 12 10 L BUN 15 16 Creatinine 1.59 H 1.63 H Estim Creat Clear Calc 49.4 48.2 Estimated GFR 48 47 Random Glucose 101 89 Calcium 9.8 D 9.4 25-OH Vitamin D Total 23.1 L PTH Intact 184.4 H Chlam trachomat DNA PCR NOT DETECTED N.gonorrhoeae DNA (PCR) NOT DETECTED Discharge Plan Discharge Anticipated Discharge Date/Time: 10/03/23 10:28 Patient Disposition: Home, Self-Care Discharge Diagnosis: Hypertension emergency, SAMAN/CKD Referrals: Physician,Unknown J [Primary Care Provider] - 1 Week Discharge Medications: New carvedilol 12.5 mg Tablet 12.5 mg PO BID Qty: 60 0RF Protocol: Hold for SBP/HR < HOLD for SBP < : 90 HOLD for HR < : 60 nifedipine 30 mg Tablet Extended Release 24hr 60 mg PO DAILY Qty: 60 0RF Protocol: Hold for SBP< HOLD for SBP < : 90 Discontinued Excedrin Migraine 250-250-65 mg Tablet 2 tab PO Q6H PRN (Reason: Headache) Diet: Advance to usual diet Activity on Discharge: As tolerated Stand Alone Forms: Patient Portal Discharge page Care Plan Goals: Blood pressure control, and prevention of progression of renal failure Health Concerns: Uncontrolled high blood pressure Kidney failure Plan of Treatment: Take blood pressure medication as directed and follow up with a regular doctor in 7 to 10 days Assessment: see above
[2023-10-03 11:32] VITALS: BP 124/94; PULSE 75; RESP 20; TEMP 36.7; O2SAT 100
[2023-10-03] MEDS: Milk of Magnesia 30 ML ORAL.SUSP PO (12:08)
--- NOTE | 2023-10-03 12:58 | MHC.CM.PN ---
Patient has been medically cleared for dc to home today, self care.
[2023-10-03 20:03] LABS: Myeloperoxidase Antibody <1.0 AI; Proteinase 3 PR3 Antibodies <1.0 AI
[2023-10-04 12:23] LABS: Complement C3 111 mg/dL (82-185)
[2023-10-04 14:29] LABS: IgA 133 mg/dL (47-310); IgG 1614 mg/dL (600-1640); IgM 66 mg/dL (50-300)
[2023-10-04 22:34] LABS: Myeloperoxidase Antibody <1.0 AI; Proteinase 3 PR3 Antibodies <1.0 AI
[2023-10-08 09:08] LABS: Renin 4.56 ng/mL/h (0.25-5.82)
[2023-10-09 16:15] LABS: Metanephrine, Free 51 pg/mL (<=57); Normetanephrines, Free 332 pg/mL (<=148); Total Metanephrine, Free 383 pg/mL (<=205)
[2023-10-10 08:39] LABS: Aldosterone/Renin Ratio 2.3 Ratio (0.9-28.9)
== END 2023-10-03 13:43 | disposition home or self-care (01) | DRG 305 ==
LOC: HO.ED 10-02 08:27 → HO.EDOVER 10-02 12:10 → HO.IMC 10-02 19:31
PROVIDERS: Internal Medicine Nephrology; Physician Assistant; Student in an Organized Health Care Education/Training Program; Admitting Provider Physician Assistant; Emergency Provider Emergency Medicine Emergency Medical Services; Visit Provider Internal Medicine
DX: I16.0 Hypertensive urgency (principal); I12.9 Hypertensive chronic kidney disease with stage 1 through stage 4 chronic kidney disease, or unspecified chronic kidney disease; N18.31 Chronic kidney disease, stage 3a; Z91.148 Patient's other noncompliance with medication regimen for other reason; Z79.899 Other long term (current) drug therapy
CPT/HCPCS: 0353U; 36415; 70450; 76775; 80048; 80053; 80307; 81001; 82088; 82306; 82784; 82947; 83735; 83835; 83970; 84244; 84484; 85025; 86021; 86160; 86334; 93005; 93975; 99285; J0360; J1170; J1920; J2270

== ENCOUNTER → 2023-10-02 07:13 | Outpatient (BNV) | payer SELFPAY | PROVIDERS: Admitting Provider Physician Assistant; Emergency Provider Emergency Medicine Emergency Medical Services; Visit Provider Internal Medicine Cardiovascular Disease | DX: I10 Essential (primary) hypertension (principal); I51.7 Cardiomegaly | CPT/HCPCS: 93010 ==

== ENCOUNTER 2023-10-02 11:57 | Outpatient (BNV) | payer SELFPAY | END 2023-10-03 03:45 | PROVIDERS: Admitting Provider Physician Assistant; Emergency Provider Emergency Medicine Emergency Medical Services; Visit Provider Internal Medicine Cardiovascular Disease | DX: R94.31 Abnormal electrocardiogram [ECG] [EKG] (principal) | CPT/HCPCS: 93010 ==

== ENCOUNTER → 2023-10-02 11:57 | Outpatient (BNV) | payer SELFPAY | PROVIDERS: Admitting Provider Physician Assistant; Emergency Provider Emergency Medicine Emergency Medical Services; Visit Provider Physician Assistant | DX: I10 Essential (primary) hypertension (principal); N18.31 Chronic kidney disease, stage 3a; R80.8 Other proteinuria | CPT/HCPCS: 99223; 99238 ==

== ENCOUNTER → 2023-10-02 11:57 | Outpatient (BNV) | payer SELFPAY | PROVIDERS: Admitting Provider Physician Assistant; Emergency Provider Emergency Medicine Emergency Medical Services; Visit Provider Internal Medicine Nephrology | DX: I12.9 Hypertensive chronic kidney disease with stage 1 through stage 4 chronic kidney disease, or unspecified chronic kidney disease (principal); N18.31 Chronic kidney disease, stage 3a; R80.8 Other proteinuria | CPT/HCPCS: 99223 ==